=== PATIENT | female | born 1960 | race Caucasian/White ===

== ENCOUNTER 2025-04-09 11:44 | Emergency (ER) | payer MEDICARE ==
[~2025-04-09] VITALS: Ht 172.7 cm; Wt 74.4 kg
[2025-04-09 11:55] VITALS: TEMP 208.9
[2025-04-09] MEDS ORDERED: KETOROLAC TROMETHAMINE INJ 30 MG/ML VIAL ONE (12:12)
[2025-04-09] MEDS ORDERED: BACLOFEN (10 MG) 10 MG TABLET ONE (12:12)
[2025-04-09] MEDS: KETOROLAC TROMETHAMINE INJ 30 MG/ML VIAL IM ONE (12:17)
[2025-04-09] MEDS: BACLOFEN (10 MG) 10 MG TABLET PO ONE (12:17)
[2025-04-09] MEDS ORDERED: KETO10TA2 PO (13:16)
[2025-04-09] MEDS ORDERED: CYCL5TAB PO (13:16)
[2025-04-09 13:23] VITALS: BP 155/67; O2SAT 98
== END 2025-04-09 13:23 | disposition home or self-care (01) ==
LOC: ER 11:50
DX: M54.2 Cervicalgia (principal); I10 Essential (primary) hypertension
CPT/HCPCS: 72125-TC; J1885